=== PATIENT | female | born 1970 | race Caucasian/White ===

== ENCOUNTER 2018-07-29 20:10 | Emergency (ER) | payer BC ==
[2018-07-29 20:39] VITALS: TEMP 98.2
[2018-07-29 21:58] LABS: Amphetamine Screen,Urine Not Detected (NotDetected); Barbiturate Screen,Urine Not Detected (NotDetected); Benzodiazepines Screen,Urine Not Detected (NotDetected); Cocaine Screen,Urine Not Detected (NotDetected); Methadone Screen, Urine Not Detected (NotDetected); Opiate Screen,Urine Not Detected (NotDetected); Oxycodone Screen, Urine Not Detected (NotDetected); Phencyclidine Screen,Urine Not Detected (NotDetected); Tricyclic Antidepressant,Urine Not Detected (NotDetected); Urn Cannabinoid Scrn Not Detected (NotDetected)
--- NOTE | 2018-07-29 23:51 | ED ---
General Adult HPI <Rafael Hernandez - Last Filed: 07/30/18 05:54> - General Source: patient, family, police, RN notes reviewed Mode of arrival: ambulatory Limitations: no limitations <Norris Chairez - Last Filed: 07/30/18 20:03> - General Chief complaint: Psychiatric Symptoms Stated complaint: Mental Health Time Seen by Provider: 07/29/18 21:10 - History of Present Illness Initial comments: 48-year-old female with a past medical history of bipolar disorder and depression presents to the emergency department for a chief complaint of suicidal thoughts. Patient was brought in by PD. Patient supposedly lost her job today and has been expressing suicidal thoughts to her ex-. Patient is a [employer] and owns two guns. Ex- contacted police who brought her in for psychiatric evaluation. Patient denying suicidal thoughts at this time. States she is going to cooperate but then hopes to go home. Patient states she is taking her psychiatric medications but can only remember Lamictal. Patient has no other complaints at this time including shortness of breath, chest pain, abdominal pain, nausea or vomiting, headache, or visual changes. (Norris Chairez) - Related Data Allergies Allergy/AdvReac Type Severity Reaction Status Date / Time acetaminophen [From Percocet] Allergy Anaphylaxis Verified 07/29/18 21:21 codeine Allergy Anaphylaxis Verified 07/29/18 21:21 morphine Allergy Anaphylaxis Verified 07/29/18 21:21 oxycodone [From Percocet] Allergy Anaphylaxis Verified 07/29/18 21:21 Review of Systems ROS Other: All systems not noted in ROS Statement are negative. <Rafael Hernandez - Last Filed: 07/30/18 05:54> ROS Other: All systems not noted in ROS Statement are negative. <Norris Chairez - Last Filed: 07/30/18 20:03> ROS Statement: Those systems with pertinent positive or pertinent negative responses have been documented in the HPI. Past Medical History Past Medical History: No Reported History History of Any Multi-Drug Resistant Organisms: None Reported Past Surgical History: Cholecystectomy, Orthopedic Surgery Past Psychological History: No Psychological Hx Reported Smoking Status: Former smoker Past Alcohol Use History: Daily Past Drug Use History: None Reported <Norris Chairez - Last Filed: 07/30/18 20:03> General Exam Limitations: no limitations General appearance: alert Head exam: Present: atraumatic, normocephalic, normal inspection Eye exam: Present: normal appearance, PERRL, EOMI. Absent: scleral icterus, conjunctival injection, periorbital swelling ENT exam: Present: normal exam, mucous membranes moist Neck exam: Present: normal inspection, full ROM. Absent: tenderness, meningismus, lymphadenopathy Respiratory exam: Present: normal lung sounds bilaterally. Absent: respiratory distress, wheezes, rales, rhonchi, stridor Cardiovascular Exam: Present: regular rate, normal rhythm, normal heart sounds. Absent: systolic murmur, diastolic murmur, rubs, gallop, clicks Neurological exam: Present: alert, oriented X3, CN II-XII intact Psychiatric exam: Present: agitated <Norris Chairez - Last Filed: 07/30/18 20:03> Course <Norris Chairez - Last Filed: 07/30/18 20:03> Vital Signs 07/29/18 07/30/18 20:34 06:20 Temperature 98.2 F Pulse Rate 88 84 Respiratory 20 18 Rate Blood Pressure 159/61 125/85 O2 Sat by Pulse 98 98 Oximetry - Reevaluation(s) Reevaluation #1: 07/29/18 23:50 Patient was initially agitated, verbal de-escalation was used and successful. Patient currently resting comfortably. Patient sober at 0120. Will be evaluated by EPS at that time. (Norris Chairez) Medical Decision Making <Norris Chairez - Last Filed: 07/30/18 20:03> - Medical Decision Making Care signed out to Dr. Hernandez at midnight (Norris Chairez) - Lab Data Lab Results 07/29/18 Range/Units 21:39 Urine Opiates Screen Not Detected (NotDetected) Ur Oxycodone Screen Not Detected (NotDetected) Urine Methadone Screen Not Detected (NotDetected) Ur Propoxyphene Screen Not Detected (NotDetected) Ur Barbiturates Screen Not Detected (NotDetected) U Tricyclic Antidepress Not Detected (NotDetected) Ur Phencyclidine Scrn Not Detected (NotDetected) Ur Amphetamines Screen Not Detected (NotDetected) U Methamphetamines Scrn Not Detected (NotDetected) U Benzodiazepines Scrn Not Detected (NotDetected) Urine Cocaine Screen Not Detected (NotDetected) U Marijuana (THC) Screen Not Detected (NotDetected) Disposition Is patient prescribed a controlled substance at d/c from ED?: No <Rafael Hernandez - Last Filed: 07/30/18 05:54> Is patient prescribed a controlled substance at d/c from ED?: No <Norris Chairez - Last Filed: 07/30/18 20:03> Clinical Impression: Mood disorder Disposition: HOME SELF-CARE Condition: Good Instructions (If sedation given, give patient instructions): Mood Disorders (ED) Referrals: Nick Wilkins MD [Primary Care Provider] - 1-2 days
[2018-07-30 06:50] VITALS: BP 125/85; PULSE 84; RESP 18
== END 2018-07-30 06:20 | disposition home or self-care (01) ==
LOC: EC 20:10
DX: F39 Unspecified mood [affective] disorder (principal); Z87.891 Personal history of nicotine dependence; Z90.49 Acquired absence of other specified parts of digestive tract; Z88.5 Allergy status to narcotic agent; Z88.8 Allergy status to other drugs, medicaments and biological substances
CPT/HCPCS: 80306; 82075; 99285

== ENCOUNTER → 2021-02-15 | Outpatient (CLI) | payer BC ==
--- NOTE | 2021-02-16 13:43 | MM ---
Reason for exam: screening (asymptomatic). Last mammogram was performed 2 years and 6 months ago. History: Patient is nulliparous. Physical Findings: A clinical breast exam by your physician is recommended on an annual basis and results should be correlated with mammographic findings. MG 3D Screening Mammo W/Cad Bilateral CC and MLO view(s) were taken. Prior study comparison: August 24, 2018, mammogram, performed at [facility]. August 22, 2017, mammogram, performed at [facility]. There are scattered fibroglandular densities. There is no discrete abnormality. No significant changes when compared with prior studies. ASSESSMENT: Negative, BI-RAD 1 RECOMMENDATION: Routine screening mammogram of both breasts in 1 year.
== END | disposition home or self-care (01) ==
LOC: RADMAMWWP 10:04
PROVIDERS: ATTEND Family Medicine
DX: Z12.31 Encounter for screening mammogram for malignant neoplasm of breast (principal)
CPT/HCPCS: 77063; 77067

== ENCOUNTER → 2022-01-16 | Outpatient (CLI) | payer BC ==
--- NOTE | 2022-01-16 09:09 | CT ---
EXAMINATION TYPE: CT abdomen pelvis w con DATE OF EXAM: 01/16/2022 COMPARISON: none HISTORY: R10.30 lower abdominal pain CONTRAST: CT scan of the abdomen and pelvis is performed with Oral Contrast and with IV Contrast, patient injec roxi with 70 mL of Isovue 300. FINDINGS: LUNG BASES-: No visible nodule. No infiltrate. LIVER/GB: The gallbladder surgically absent. No space occupying hepatic lesion. Biliary tree is of normal caliber. PANCREAS: No inflammation. No distinct mass. SPLEEN: No splenic enlargement. No lesion seen. ADRENALS: No nodule. No thickening. KIDNEYS/BLADDER: No hydronephrosis. No nephrolithiasis. No distinct renal mass. Urinary bladder g rossly unremarkable. BOWEL: Normal appendix. Normal bowel caliber. No inflammation. GENITAL ORGANS: No gross abnormality. LYMPH NODES: No greater than 1cm abdominal or pelvic lymph nodes are appreciated. AORTA: No significant abnormality. OSSEOUS STRUCTURES: No significant abnormality is seen. OTHER: No significant additional abnormality is seen. IMPRESSION: 1. No discrete abnormality appreciated to account for the patient's symptoms.
== END | disposition home or self-care (01) ==
LOC: RADCTMAIN 06:22
PROVIDERS: ATTEND Surgery
DX: R10.30 Lower abdominal pain, unspecified (principal)
CPT/HCPCS: 74177; Q9967

== ENCOUNTER → 2022-02-18 | Outpatient (CLI) | payer BC ==
--- NOTE | 2022-02-19 15:17 | MM ---
Reason for Exam: Screening (asymptomatic). Last screening mammogram was performed 12 month(s) ago. Patient History: Menarche at age 12. First Full-Term at age 17. Postmenopausal. Risk Values: Scarlet 5 year model risk: 0.8%. NCI Lifetime model risk: 6.3%. Prior Study Comparison: 08/22/2017 Screening Mammogram, [facility]. 08/24/2018 Screening Mammogram, [facility]. 02/15/2021 Bilateral Screening Mammogram, LOCATED WITHIN [facility]. Tissue Density: There are scattered fibroglandular densities. Findings: Analyzed By CAD. Single benign appearing round calcification right breast redemonstrated. There is no suspicious group of microcalcifications or new suspicious mass in either breast. Overall Assessment: Negative, BI-RAD 1 Management: Screening Mammogram of both breasts in 1 year. A clinical breast exam by your physician is recommended on an annual basis and results should be correlated with mammographic findings. Electronically signed and approved by: Bhanu King M.D.
== END | disposition home or self-care (01) ==
LOC: RADMAMWWP 14:28
PROVIDERS: ATTEND Family Medicine
DX: Z12.31 Encounter for screening mammogram for malignant neoplasm of breast (principal); Z78.0 Asymptomatic menopausal state
CPT/HCPCS: 77063; 77067

== ENCOUNTER 2022-08-06 12:47 | Emergency (ER) | payer BC ==
[2022-08-06 13:08] VITALS: TEMP 97.9
--- NOTE | 2022-08-06 13:29 | ED ---
Chest Pain HPI - General Source: patient, RN notes reviewed Mode of arrival: ambulatory Limitations: no limitations <Arik Hills - Last Filed: 08/06/22 13:28> <Rafael Hernandez - Last Filed: 08/06/22 19:41> - General Chief Complaint: Chest Pain Stated Complaint: chest pain Time Seen by Provider: 08/06/22 13:28 - History of Present Illness Initial Comments: 52-year-old female presents emergency Department chief complaint of chest pain. Patient states started at work proximal to 4 hours ago. Patient states init ially she is very nauseated states the pain was intense. She does have cardiac family history denies any history of hypertension, hyperlipidemia or diabetes. Patient states her blood pressure was elevated at work. (Arik Hills) - Related Data Allergies Allergy/AdvReac Type Severity Reaction Status Date / Time acetaminophen [From Percocet] Allergy Anaphylaxis Verified 08/06/22 13:08 codeine Allergy Anaphylaxis Verified 08/06/22 13:08 morphine Allergy Anaphylaxis Verified 08/06/22 13:08 oxycodone [From Percocet] Allergy Anaphylaxis Verified 08/06/22 13:08 Review of Systems ROS Other: All systems not noted in ROS Statement are negative. <Arik Hills - Last Filed: 08/06/22 13:28> ROS Other: All systems not noted in ROS Statement are negative. <Rafael Hernandez - Last Filed: 08/06/22 19:41> ROS Statement: Those systems with pertinent positive or pertinent negative responses have been documented in the HPI. EKG Findings - EKG Results: EKG: interpreted by ERMD, sinus rhythm (Rate 100 bpm), normal axis, normal QRS, normal ST/T, no acute changes <Rafael Hernandez - Last Filed: 08/06/22 19:41> Past Medical History Past Medical History: No Reported History History of Any Multi-Drug Resistant Organisms: None Reported Past Surgical History: Cholecystectomy, Orthopedic Surgery Past Psychological History: No Psychological Hx Reported Past Alcohol Use History: Daily Past Drug Use History: None Reported <Arik Hills - Last Filed: 08/06/22 13:28> General Exam Limitations: no limitations <Arik Hills - Last Filed: 08/06/22 13:28> - General Exam Comments Initial Comments: Visual Physical Exam Vital signs reviewed General: Well-appearing, nontoxic, no acute distress. Head: Normocephalic, atraumatic Eyes: PERRLA, EOMI ENT: Airway patent Chest: Nonlabored breathing Skin: No visual rash, normal skin tone Neuro: Alert and oriented 3 Musculoskeletal: No gross abnormalities (Arik Hills) Course Vital Signs 08/06/22 08/06/22 08/06/22 13:05 13:48 19:22 Temperature 97.9 F Pulse Rate 97 92 83 Respiratory 18 16 Rate Blood Pressure 142/83 149/85 139/89 O2 Sat by Pulse 99 99 97 Oximetry Disposition <Arik Hills - Last Filed: 08/06/22 13:28> Is patient prescribed a controlled substance at d/c from ED?: No <Rafael Hernandez - Last Filed: 08/06/22 19:41> Clinical Impression: Chest pain Disposition: HOME SELF-CARE Condition: Good Instructions (If sedation given, give patient instructions): Chest Pain (ED) Referrals: Vargas Hunter MD [Primary Care Provider] - 1-2 days Festus Solis MD [STAFF PHYSICIAN] - 1-2 days
[2022-08-06 14:01] LABS: HCT 44.3 % (34.0-46.0); HGB 15.5 gm/dL (11.4-16.0); MCH 32.1 pg (25.0-35.0); MCV 91.8 fL (80.0-100.0); Mean Platelet Volume 6.7; Platelet Count 288 k/uL (150-450); RBC 4.82 m/uL (3.80-5.40); RDW 12.1 % (11.5-15.5); WBC 7.2 k/uL (3.8-10.6)
[2022-08-06 14:14] LABS: INR 0.9 (<1.2); Partial Thromboplastin Time 22.4 sec (22.0-30.0); Prothrombin Time 9.8 sec (9.0-12.0)
[2022-08-06 14:18] LABS: ALT 34 U/L (4-34); AST 61 U/L (14-36); African American GFR (CKD) >90 (>60 ml/min/1.73 sqM); Albumin 4.8 g/dL (3.5-5.0); Alkaline Phosphatase 72 U/L (38-126); Anion Gap 11 mmol/L; Blood Urea Nitrogen 7 mg/dL (7-17); Calcium 9.1 mg/dL (8.4-10.2); Carbon Dioxide 26 mmol/L (22-30); Chloride 97 mmol/L (98-107); Glucose 94 mg/dL (74-99); Lipase 105 U/L (23-300); Magnesium 1.8 mg/dL (1.6-2.3); Non-African American GFR(CKD) >90 (>60 ml/min/1.73 sqM); Sodium 134 mmol/L (137-145); Total Bilirubin 1.3 mg/dL (0.2-1.3); Total Protein 7.4 g/dL (6.3-8.2)
[2022-08-06 15:53] LABS: Lymphocytes # (M) 0.94 k/uL (1.0-4.8); Monocytes # (M) 0.36 k/uL (0-1.0); Neutrophils % (M) 82 %; Nucleated Red Blood Cells 0 /100 WBC (0-0); Total Cells Counted 100
[2022-08-06 19:23] VITALS: RESP 16
--- NOTE | 2022-08-06 19:52 | XR ---
EXAMINATION TYPE: XR chest 2V DATE OF EXAM: 08/06/2022 COMPARISON: None INDICATION: Chest pain TECHNIQUE: Frontal and lateral views of the chest are obtained. FINDINGS: The heart size is normal. The pulmonary vasculature is normal. The lungs are clear. IMPRESSION: 1. No acute pulmonary process.
[2022-08-06 20:20] VITALS: BP 136/76; PULSE 75
== END 2022-08-06 20:09 | disposition home or self-care (01) ==
LOC: EC 12:47
DX: R07.9 Chest pain, unspecified (principal); Z88.6 Allergy status to analgesic agent; Z88.5 Allergy status to narcotic agent
CPT/HCPCS: 36415; 71046; 80053; 83690; 83735; 84484; 85025; 85610; 85730; 93005; 99285

== ENCOUNTER → 2022-09-12 | Outpatient (CLI) | payer OTHER ==
--- NOTE | 2022-09-12 11:04 | XR ---
EXAMINATION TYPE: XR knee complete LT DATE OF EXAM: 09/12/2022 COMPARISON: NONE HISTORY: [id number] history of fall, lateral side knee pain TECHNIQUE: 3 views of the left knee are submitted for evaluation. FINDINGS: There is no evidence for fracture or dislocation. Ankle mortise is intact. No significant s oft tissue edema. A few soft tissue calcifications within the medial right knee. IMPRESSION: No evidence for acute fracture.
== END | disposition home or self-care (01) ==
LOC: RADXRMAIN 10:39
PROVIDERS: ATTEND Emergency Medicine
DX: S80.02XA Contusion of left knee, initial encounter (principal)

== ENCOUNTER → 2022-09-20 | Outpatient (CLI) | payer OTHER ==
--- NOTE | 2022-09-21 08:38 | MR ---
EXAMINATION TYPE: MR knee LT wo con DATE OF EXAM: 09/20/2022 COMPARISON: None HISTORY: Contusion of Left Knee, Pain and swelling TECHNIQUE: Multiplanar, multisequence imaging of the left knee is performed without IV contrast. FINDINGS: There is a nondisplaced fracture of the patella with moderate bone marrow edema. There is a small foc al contusion of the anterior aspect of the lateral femoral condyle. There is edema in the anterior so ft tissues overlying the patella. There is a small joint effusion. The cruciate and collateral ligaments are intact. Small ganglion cyst anterior cruciate ligament dist ally. There is no meniscal tear. There is mild osteoarthritic change of the patellofemoral compartment where there is mild chondromala debbie patella. There is mild osteoarthritic change of the medial lateral compartment where there is mil d chondromalacia mild marginal hypertrophic spurring. . IMPRESSION: 1. Evidence for acute injury with anterior soft tissue swelling, nondisplaced fracture patella with e yesenia and focal edema in the anterior lateral femoral condyle. 2. Small joint effusion. 3. Mild 3 compartment osteoarthritic change. 4. No acute meniscal or ligamentous injury.
== END | disposition home or self-care (01) ==
LOC: RADMRIMAIN 17:28
PROVIDERS: ATTEND Emergency Medicine
DX: M17.12 Unilateral primary osteoarthritis, left knee (principal); S80.02XA Contusion of left knee, initial encounter; S82.035A Nondisplaced transverse fracture of left patella, initial encounter for closed fracture; S72.425A Nondisplaced fracture of lateral condyle of left femur, initial encounter for closed fracture; M25.462 Effusion, left knee; M79.89 Other specified soft tissue disorders; X58.XXXA Exposure to other specified factors, initial encounter

== ENCOUNTER → 2022-09-26 | Outpatient (CLI) | payer OTHER ==
--- NOTE | 2022-09-26 17:48 | US ---
EXAMINATION TYPE: US venous doppler duplex LE LT DATE OF EXAM: 09/26/2022 2:44 PM COMPARISON: NONE CLINICAL INDICATION: Female, 52 years old with history of S80.02XD,S82.002D FX PATELLA; recent fractu re, swelling to left leg SIDE PERFORMED: Left TECHNIQUE: The lower extremity deep venous system is examined utilizing real time linear array sonog jose with graded compression, doppler sonography and color-flow sonography. VESSELS IMAGED: Common Femoral Vein Deep Femoral Vein Greater Saphenous Vein * Femoral Vein Popliteal Vein Small Saphenous Vein * Proximal Calf Veins (* superficial vessels) Grayscale, color doppler, spectral doppler imaging performed of the deep veins of the left lower extr emity. There is normal flow, compressibility, vascular waveforms. Left Leg: Negative for DVT IMPRESSION: No ultrasound evidence for deep venous thrombosis of the left lower extremity.
== END | disposition home or self-care (01) ==
LOC: RADUSWWP 13:54
PROVIDERS: ATTEND Emergency Medicine
DX: S80.02XD Contusion of left knee, subsequent encounter (principal); S82.002D Unspecified fracture of left patella, subsequent encounter for closed fracture with routine healing; X58.XXXD Exposure to other specified factors, subsequent encounter

== ENCOUNTER 2023-01-22 10:45 | Emergency (ER) | payer BC ==
[2023-01-22 11:02] VITALS: TEMP 98.2
[2023-01-22] MEDS ORDERED: MECLIZINE 12.5 MG TAB PO STA ×2 (11:20→11:43)
[2023-01-22] MEDS ORDERED: SODIUM CHLORIDE 0.9% 1,000 ML IV STA (11:20)
[2023-01-22] MEDS ORDERED: KETOROLAC 15 MG/ML 1 ML VIAL IVP STA (11:28)
--- NOTE | 2023-01-22 11:33 | ED ---
Headache HPI - General Chief Complaint: Headache Stated Complaint: HTN Time Seen by Provider: 01/22/23 10:53 Source: patient, RN notes reviewed Mode of arrival: ambulatory Limitations: no limitations - History of Present Illness Initial Comments: This is a 52-year-old female who presents to the emergency department for a headache and dizziness. Patient states that she woke up this morning with a room spinning sensation and thought that she may have vertigo. She went to see her chiropractor who was going to adjust her neck, and he told her that she had elevated blood pressure and wondered if that may have been causing her symptoms. She was also complaining of a headache to the back of her head. States that her blood pressure is usually in the 140s systolically and she was going to wait until her physical examination early next month to discuss this with her PCP. Denies any visual changes. She was not experiencing a headache prior to today. She would not describe this as the worst headache of her life. She does still feel somewhat dizzy, but states that it is much worse with movement. Denies any nausea or vomiting. Denies feeling lightheaded. Also denies any chest pain or shortness of breath. MD Complaint: headache, other (dizziness) - Related Data Previous Rx's Medication Instructions Recorded Meclizine [Antivert] 25 mg PO TID PRN #15 tab 01/22/23 Metoclopramide [Reglan] 10 mg PO Q6H PRN #20 tab 01/22/23 Molnupiravir [Lagevrio (Eua)] 800 mg PO BID 5 Days #40 cap 01/22/23 Allergies Allergy/AdvReac Type Severity Reaction Status Date / Time codeine Allergy Anaphylaxis Verified 01/22/23 11:41 morphine Allergy Anaphylaxis Verified 01/22/23 11:41 oxycodone [From Percocet] Allergy Anaphylaxis Verified 01/22/23 11:41 Review of Systems ROS Statement: Those systems with pertinent positive or pertinent negative responses have been documented in the HPI. ROS Other: All systems not noted in ROS Statement are negative. Past Medical History Past Medical History: No Reported History History of Any Multi-Drug Resistant Organisms: None Reported Past Surgical History: Cholecystectomy, Orthopedic Surgery Past Psychological History: No Psychological Hx Reported Smoking Status: Never smoker Past Alcohol Use History: Daily Past Drug Use History: None Reported General Exam Limitations: no limitations General appearance: alert, in no apparent distress Head exam: Present: atraumatic, normocephalic, normal inspection Eye exam: Present: normal appearance, PERRL, EOMI. Absent: scleral icterus, conjunctival injection, periorbital swelling Respiratory exam: Present: normal lung sounds bilaterally. Absent: respiratory distress, wheezes, rales, rhonchi, stridor Cardiovascular Exam: Present: regular rate, normal rhythm, normal heart sounds. Absent: systolic murmur, diastolic murmur, rubs, gallop, clicks Neurological exam: Present: alert, oriented X3, CN II-XII intact, other (Negative HINTS exam.) Psychiatric exam: Present: normal affect, normal mood Skin exam: Present: warm, dry, intact, normal color. Absent: rash Course Vital Signs 01/22/23 01/22/23 01/22/23 10:46 11:31 13:21 Temperature 98.2 F Pulse Rate 103 H 96 80 Respiratory 18 20 18 Rate Blood Pressure 175/104 140/92 144/89 O2 Sat by Pulse 99 96 99 Oximetry Medical Decision Making - Medical Decision Making This is a 52-year-old female who presents to the emergency department for headaches and dizziness. Was pt. sent in by a medical professional or institution? @ -No Did you speak to anyone other than the patient for history? @ -No Did you review nursing and triage notes? @ -Yes, and I agree, it is accurate with regards to the patient's symptoms. Were old charts reviewed? @ -No Differential Diagnosis? @ -Differential Dizziness: Benign paroxysmal positional Vertigo, Menieres disease, otitis media, acoustic neuroma, vertebrobasilar insufficiency, cerebellar stroke, encephalitis, hypovolemic, arrhythmia, coronary artery syndrome, anemia, this is not meant to be an all-inclusive list EKG interpreted by me (3pts min.)? @ -EKG interpreted by me demonstrating the following: Sinus rhythm. Ventricular rate 85 beats per minute, DC interval 162 ms, QRS duration 88 ms, QTC 388 ms. X-rays interpreted by me (1pt min.)? @ -Not obtained CT interpreted by me (1pt min.)? @ -Not obtained U/S interpreted by me (1pt. min.)? @ -Not obtained What testing was considered but not performed? (CT, X-rays, U/S, labs)? Why? @ -None What meds were considered but not given? Why? @ -None Did you discuss the management of the patient with other professionals? @ -No Did you reconcile home meds? @ -No Was smoking cessation discussed for >3mins.? @ -No Was critical care preformed (if so, how long)? @ -No Were there social determinants of health that impacted care today? How? (Homelessness, low income, unemployed, alcoholism, drug addiction, transportation, low edu. Level, literacy, decrease access to med. care, halfway, rehab)? @ -No Was there de-escalation of care discussed even if they declined? (Discuss DNR or withdrawal of care, Hospice)? @ -No What co-morbidities impacted this encounter? (DM, HTN, Smoking, COPD, CAD, Cancer, CVA, Hep., AIDS, mental health diagnosis, sleep apnea, morbid obesity)? @ -HTN Was patient admitted / discharged? @ -Discharged. Lab work obtained and found to be nonactionable. Patient did test positive for COVID-19. She was hypertensive on arrival with a blood pressure of 175/104. However, this improved on its own and at the time of discharge she was 138/72. She was given IV fluids and Antivert, which she felt was helpful for her symptoms. Discussed that viral illnesses such as Covid can trigger vertigo attacks. HINTS exam was negative and she did not exhibit any neurological deficits. Discussed antiviral treatment with the patient, and she wishes to proceed. Prescription for Molnupirivir provided with dosing instructions reviewed. She was also given prescriptions for antivert and reglan for further management of the vertigo. She was discharged home in stable condition with instructions to have close follow up with her PCP and continue monitoring her BP at home. Undiagnosed new problem with uncertain prognosis? @ -None Drug Therapy requiring intensive monitoring for toxicity (Heparin, Nitro, Insulin, Cardizem)? @ -None Were any procedures done? @ -None Diagnosis/symptom? @ -BPPV, COVID-19 Acute, or Chronic, or Acute on Chronic? @ -Acute Uncomplicated (without systemic symptoms) or Complicated (systemic symptoms)? @ -Uncomplicated Side effects of treatment? @ -None Exacerbation, Progression, or Severe Exacerbation] @ -Not applicable Poses a threat to life or bodily function? @ -No Return precautions reviewed in depth, the patient is instructed to return to the emergency department with any new, worsening, or concerning symptoms. Patient verbalized understanding. This case was discussed in detail with the attending ED physician, Dr. Levy. Presentation, findings, and treatment plan discussed in detail as well. - Lab Data Result diagrams: 01/22/23 11:24 01/22/23 11:24 Lab Results 01/22/23 01/22/23 01/22/23 Range/Units 11:24 11:24 11:24 WBC 6.5 (3.8-10.6) k/uL RBC 4.58 (3.80-5.40) m/uL Hgb 14.9 (11.4-16.0) gm/dL Hct 42.1 (34.0-46.0) % MCV 91.9 (80.0-100.0) fL MCH 32.5 (25.0-35.0) pg MCHC 35.4 (31.0-37.0) g/dL RDW 12.2 (11.5-15.5) % Plt Count 264 (150-450) k/uL MPV 7.3 Neutrophils % (Manual) 73 % Lymphocytes % (Manual) 15 % Monocytes % (Manual) 7 % Eosinophils % (Manual) 5 % Neutrophils # (Manual) 4.75 (1.3-7.7) k/uL Lymphocytes # (Manual) 0.98 L (1.0-4.8) k/uL Monocytes # (Manual) 0.46 (0-1.0) k/uL Eosinophils # (Manual) 0.33 (0-0.7) k/uL Nucleated RBCs 0 (0-0) /100 WBC Manual Slide Review Performed RBC Morphology Normal Sodium 139 (137-145) mmol/L Potassium 4.2 (3.5-5.1) mmol/L Chloride 106 (98-107) mmol/L Carbon Dioxide 23 (22-30) mmol/L Anion Gap 10 mmol/L BUN 7 (7-17) mg/dL Creatinine 0.51 L (0.52-1.04) mg/dL Est GFR (CKD-EPI)AfAm >90 (>60 ml/min/1.73 sqM) Est GFR (CKD-EPI)NonAf >90 (>60 ml/min/1.73 sqM) Glucose 85 (74-99) mg/dL Calcium 9.5 (8.4-10.2) mg/dL Total Bilirubin 1.3 (0.2-1.3) mg/dL AST 49 H (14-36) U/L ALT 28 (4-34) U/L Alkaline Phosphatase 66 (38-126) U/L Total Protein 7.0 (6.3-8.2) g/dL Albumin 4.3 (3.5-5.0) g/dL Urine Color Colorless Urine Appearance Clear (Clear) Urine pH 5.5 (5.0-8.0) Ur Specific [place] 1.002 (1.001-1.035) Urine Protein Negative (Negative) Urine Glucose (UA) Negative (Negative) Urine Ketones Negative (Negative) Urine Blood Negative (Negative) Urine Nitrite Negative (Negative) Urine Bilirubin Negative (Negative) Urine Urobilinogen <2.0 (<2.0) mg/dL Ur Leukocyte Esterase Negative (Negative) Influenza Type A (PCR) (Not Detectd) Influenza Type B (PCR) (Not Detectd) RSV (PCR) (Not Detectd) SARS-CoV-2 (PCR) (Not Detectd) 01/22/23 Range/Units 11:24 WBC (3.8-10.6) k/uL RBC (3.80-5.40) m/uL Hgb (11.4-16.0) gm/dL Hct (34.0-46.0) % MCV (80.0-100.0) fL MCH (25.0-35.0) pg MCHC (31.0-37.0) g/dL RDW (11.5-15.5) % Plt Count (150-450) k/uL MPV Neutrophils % (Manual) % Lymphocytes % (Manual) % Monocytes % (Manual) % Eosinophils % (Manual) % Neutrophils # (Manual) (1.3-7.7) k/uL Lymphocytes # (Manual) (1.0-4.8) k/uL Monocytes # (Manual) (0-1.0) k/uL Eosinophils # (Manual) (0-0.7) k/uL Nucleated RBCs (0-0) /100 WBC Manual Slide Review RBC Morphology Sodium (137-145) mmol/L Potassium (3.5-5.1) mmol/L Chloride (98-107) mmol/L Carbon Dioxide (22-30) mmol/L Anion Gap mmol/L BUN (7-17) mg/dL Creatinine (0.52-1.04) mg/dL Est GFR (CKD-EPI)AfAm (>60 ml/min/1.73 sqM) Est GFR (CKD-EPI)NonAf (>60 ml/min/1.73 sqM) Glucose (74-99) mg/dL Calcium (8.4-10.2) mg/dL Total Bilirubin (0.2-1.3) mg/dL AST (14-36) U/L ALT (4-34) U/L Alkaline Phosphatase (38-126) U/L Total Protein (6.3-8.2) g/dL Albumin (3.5-5.0) g/dL Urine Color Urine Appearance (Clear) Urine pH (5.0-8.0) Ur Specific Climax (1.001-1.035) Urine Protein (Negative) Urine Glucose (UA) (Negative) Urine Ketones (Negative) Urine Blood (Negative) Urine Nitrite (Negative) Urine Bilirubin (Negative) Urine Urobilinogen (<2.0) mg/dL Ur Leukocyte Esterase (Negative) Influenza Type A (PCR) Not Detected (Not Detectd) Influenza Type B (PCR) Not Detected (Not Detectd) RSV (PCR) Not Detected (Not Detectd) SARS-CoV-2 (PCR) Detected A (Not Detectd) Disposition Clinical Impression: Vertigo, COVID-19 Disposition: HOME SELF-CARE Instructions (If sedation given, give patient instructions): Vertigo (ED), Benign Paroxysmal Positional Vertigo (ED), COVID-19 (Coronavirus Disease 2019) (ED) Additional Instructions: Return to the emergency department with any new, worsening, or concerning symptoms. Take the Molnupiravir as 4 tablets twice daily for 5 days. You can take the Antivert up to 4 times daily for feelings of dizziness/vertigo. The Reglan can be taken up to every 6 hours as needed for vertigo/dizziness or nausea/vomiting. Follow up with your primary care provider in 1-2 days. Prescriptions: Meclizine [Antivert] 25 mg PO TID PRN #15 tab PRN Reason: Vertigo Molnupiravir [Lagevrio (Eua)] 800 mg PO BID 5 Days #40 cap Metoclopramide [Reglan] 10 mg PO Q6H PRN #20 tab PRN Reason: Vertigo Is patient prescribed a controlled substance at d/c from ED?: No Referrals: Vargas Hunter MD [Primary Care Provider] - 1-2 days
[2023-01-22 11:53] LABS: Appearance,Urine Clear (Clear); Bilirubin,Urine Negative (Negative); Blood,Urine Negative (Negative); Color,Urine Colorless; Glucose,Urine (UA) Negative (Negative); HCT 42.1 % (34.0-46.0); HGB 14.9 gm/dL (11.4-16.0); Ketones,Urine Negative (Negative); Leukocyte Esterase,Urine Negative (Negative); MCH 32.5 pg (25.0-35.0); MCHC 35.4 g/dL (31.0-37.0); MCV 91.9 fL (80.0-100.0); Mean Platelet Volume 7.3; Nitrite,Urine Negative (Negative); PH, Urine 5.5 (5.0-8.0); Platelet Count 264 k/uL (150-450); Protein,Urine Negative (Negative); RBC 4.58 m/uL (3.80-5.40); RDW 12.2 % (11.5-15.5); Specific Gravity,Urine 1.002 (1.001-1.035); Urobilinogen,Urine <2.0 mg/dL (<2.0); WBC 6.5 k/uL (3.8-10.6)
[2023-01-22 12:04] LABS: ALT 28 U/L (4-34); AST 49 U/L (14-36); African American GFR (CKD) >90 (>60 ml/min/1.73 sqM); Albumin 4.3 g/dL (3.5-5.0); Alkaline Phosphatase 66 U/L (38-126); Anion Gap 10 mmol/L; Blood Urea Nitrogen 7 mg/dL (7-17); Calcium 9.5 mg/dL (8.4-10.2); Carbon Dioxide 23 mmol/L (22-30); Chloride 106 mmol/L (98-107); Glucose 85 mg/dL (74-99); Non-African American GFR(CKD) >90 (>60 ml/min/1.73 sqM); Potassium 4.2 mmol/L (3.5-5.1); Sodium 139 mmol/L (137-145); Total Bilirubin 1.3 mg/dL (0.2-1.3)
[2023-01-22 12:45] LABS: Eosinophils # (M) 0.33 k/uL (0-0.7); Lymphocytes # (M) 0.98 k/uL (1.0-4.8); Monocytes # (M) 0.46 k/uL (0-1.0); Neutrophils # (M) 4.75 k/uL (1.3-7.7); Neutrophils % (M) 73 %; Nucleated Red Blood Cells 0 /100 WBC (0-0); Total Cells Counted 100
[2023-01-22 12:47] LABS: RBC Morphology Normal
[2023-01-22] MEDS ORDERED: SCOPOLAMINE 1 MG/72 HR PATCH TRANSDERM STA (12:56)
[2023-01-22 13:22] VITALS: BP 144/89; PULSE 80; RESP 18
== END 2023-01-22 13:22 | disposition home or self-care (01) ==
LOC: EC 10:45
DX: U07.1 COVID-19 (principal); R42 Dizziness and giddiness; Z88.5 Allergy status to narcotic agent; Z88.8 Allergy status to other drugs, medicaments and biological substances
CPT/HCPCS: 99284; 96374; 96361; 36415; 80053; 85025; 81003; 87636; J1885; 93005

== ENCOUNTER → 2023-02-19 | Outpatient (CLI) | payer BC ==
--- NOTE | 2023-02-20 10:39 | MM ---
Reason for Exam: Screening (asymptomatic). Last screening mammogram was performed 12 month(s) ago. Patient History: Menarche at age 12. First Full-Term at age 17. Postmenopausal. Risk Values: Scarlet 5 year model risk: 0.8%. NCI Lifetime model risk: 6.2%. Prior Study Comparison: 08/24/2018 Screening Mammogram, [facility]. 02/15/2021 Bilateral Screening Mammogram, [facility]. 02/18/2022 Bilateral MG 3D screening mammo w/cad, [facility]. Tissue Density: There are scattered fibroglandular densities. Findings: Analyzed By CAD. Distortion upper outer left breast. Additional views recommended. No evidence for mass. No suspicious calcifications. Overall Assessment: Incomplete: need additional imaging evaluation, BI-RAD 0 Management: Diagnostic Mammogram of the left breast. Patient should continue monthly self-breast exams. A clinical breast exam by your physician is recommended on an annual basis. This exam should not preclude additional follow-up of suspicious palpable abnormalities. Note on Scarlet scores and lifetime risk: 1. A Scarlet score greater than 3% is considered moderate risk. If this is the case, consider specialist referral to assess eligibility for a risk reducing agent. 2. If overall lifetime risk for the development of breast cancer is 20% or higher, the patient may qualify for future screening with alternating mammogram and breast MRI. Electronically signed and approved by: Olivier Saul M.D. Radiologis
== END | disposition home or self-care (01) ==
LOC: RADMAMWWP 15:06
PROVIDERS: ATTEND Family Medicine
DX: Z12.31 Encounter for screening mammogram for malignant neoplasm of breast (principal); Z78.0 Asymptomatic menopausal state
CPT/HCPCS: 77063; 77067

== ENCOUNTER → 2023-03-07 | Outpatient (CLI) | payer BC ==
--- NOTE | 2023-03-07 14:26 | MM ---
Reason for Exam: Additional evaluation requested from abnormal screening. Last screening mammogram was performed less than 1 month ago. Patient History: Menarche at age 12. First Full-Term at age 17. Postmenopausal. Risk Values: Scarlet 5 year model risk: 0.8%. NCI Lifetime model risk: 6.2%. Prior Study Comparison: 02/15/2021 Bilateral Screening Mammogram, [facility]. 02/18/2022 Bilateral MG 3D screening mammo w/cad, [facility]. 02/19/2023 Bilateral MG 3D screening mammo w/cad, [facility]. Tissue Density: Left: The breast tissue is almost entirely fat. Findings: Analyzed By CAD. Potential distortion persists in the left breast 7.7 cm the nipple in the lateral aspect. No new suspicious masses, calcifications or distortions. Overall Assessment: Incomplete: need additional imaging evaluation, BI-RAD 0 Management: Diagnostic Breast Ultrasound of the left breast. Results were given to the patient verbally at the time of exam. Patient should continue monthly self-breast exams. A clinical breast exam by your physician is recommended on an annual basis. This exam should not preclude additional follow-up of suspicious palpable abnormalities. Note on Scarlet scores and lifetime risk: 1. A Scarlet score greater than 3% is considered moderate risk. If this is the case, consider specialist referral to assess eligibility for a risk reducing agent. 2. If overall lifetime risk for the development of breast cancer is 20% or higher, the patient may qualify for future screening with alternating mammogram and breast MRI. Electronically signed and approved by: Mo Chavez DO
--- NOTE | 2023-03-07 15:15 | USB ---
Reason for Exam: Additional evaluation requested from abnormal screening. Patient History: Menarche at age 12. First Full-Term at age 17. Postmenopausal. Risk Values: Scarlet 5 year model risk: 0.8%. NCI Lifetime model risk: 6.2%. Technique: Method: Targeted. Prior Study Comparison: 02/15/2021 Bilateral Screening Mammogram, [facility]. 02/18/2022 Bilateral MG 3D screening mammo w/cad, [facility]. 02/19/2023 Bilateral MG 3D screening mammo w/cad, [facility]. Findings: The upper outer quadrant of the left breast, the axilla of the left breast and the retroareolar of the left breast were scanned. Targeted ultrasound upper outer quadrant left breast including the subareolar region and axilla. No solid or cystic lesion or axillary lymphadenopathy. Overall Assessment: Probably benign, BI-RAD 3 Management: Diagnostic Mammogram of the left breast in 6 months. A clinical breast exam by your physician is recommended on an annual basis and results should be correlated with mammographic findings. This exam should not preclude additional follow-up of suspicious palpable abnormalities. Results were given to the patient verbally at the time of exam. Electronically signed and approved by: Brenna Humphries M.D. Radiologist
== END | disposition home or self-care (01) ==
LOC: RADMAMWWP 13:37
PROVIDERS: ATTEND Family Medicine
DX: R92.312 Mammographic fatty tissue density, left breast (principal); Z78.0 Asymptomatic menopausal state
CPT/HCPCS: 77061; 77065

== ENCOUNTER 2024-09-22 09:16 | Observation (INO) | payer BC, OTHER ==
--- NOTE | 2024-09-22 09:52 | ED ---
Chest Pain HPI - General Chief Complaint: Chest Pain Stated Complaint: Chest Pain Time Seen by Provider: 09/22/24 09:26 Source: patient, RN notes reviewed Mode of arrival: ambulatory Limitations: no limitations - History of Present Illness Initial Comments: 54-year-old female presents emergency department with chief complaint of chest discomfort. Patient states that started when she was getting ready for work. Patient states that centralized chest pain radiates to her back. Patient states marked pressure type feeling she states she does have a history of hypertension she worked with former smoker over 30 years ago. Patient states she has significant family history of cardiac disease. Patient denies fever chills no shortness of breath currently. Patient had no diaphoretic episodes denies any leg pain or leg swelling. - Related Data Previous Rx's Medication Instructions Recorded Meclizine [Antivert] 25 mg PO TID PRN #15 tab 01/22/23 Metoclopramide [Reglan] 10 mg PO Q6H PRN #20 tab 01/22/23 Molnupiravir [Lagevrio (Eua)] 800 mg PO BID 5 Days #40 cap 01/22/23 Allergies Allergy/AdvReac Type Severity Reaction Status Date / Time codeine Allergy Anaphylaxis Verified 09/22/24 09:23 morphine Allergy Anaphylaxis Verified 09/22/24 09:23 oxycodone [From Percocet] Allergy Anaphylaxis Verified 09/22/24 09:23 Review of Systems ROS Statement: Those systems with pertinent positive or pertinent negative responses have been documented in the HPI. ROS Other: All systems not noted in ROS Statement are negative. EKG Findings - EKG Comments: EKG Findings:: Sinus rhythm rate of 71 [place] 167 QRS 94 QT/QTc 405/428 - EKG Results: EKG: interpreted by ERMD Past Medical History Past Medical History: Hypertension History of Any Multi-Drug Resistant Organisms: None Reported Past Surgical History: Back Surgery, Cholecystectomy, Hernia Repair, Joint Replacement, Orthopedic Surgery Additional Past Surgical History / Comment(s): Gastric Bypass Past Psychological History: No Psychological Hx Reported Smoking Status: Never smoker Past Alcohol Use History: Daily Past Drug Use History: None Reported General Exam Limitations: no limitations General appearance: alert, in no apparent distress Head exam: Present: atraumatic, normocephalic, normal inspection Neck exam: Present: normal inspection, full ROM. Absent: tenderness, meningismus, lymphadenopathy Respiratory exam: Present: normal lung sounds bilaterally. Absent: respiratory distress, wheezes, rales, rhonchi, stridor Cardiovascular Exam: Present: regular rate, normal rhythm, normal heart sounds. Absent: systolic murmur, diastolic murmur, rubs, gallop, clicks GI/Abdominal exam: Present: soft, normal bowel sounds. Absent: distended, tenderness, guarding, rebound, rigid Back exam: Absent: CVA tenderness (R), CVA tenderness (L) Neurological exam: Present: alert, oriented X3 Course Vital Signs 09/22/24 09/22/24 09:21 11:30 Temperature 97.9 F Pulse Rate 74 75 Respiratory 20 18 Rate Blood Pressure 148/89 126/83 O2 Sat by Pulse 99 96 Oximetry Chest Pain MDM - MDM Was pt. sent in by a medical professional or institution (, PA, DELIVERY ENGINEER, urgent care, hospital, or [facility]...) When possible be specific @ -No Did you speak to anyone other than the patient for history (EMS, parent, family, police, friend...)? What history was obtained from this source @ -No Did you review nursing and triage notes (agree or disagree)? Why? @ -I reviewed and agree with nursing and triage notes Were old charts reviewed (outside hosp., previous admission, EMS record, old EKG, old radiological studies, urgent care reports/EKG's, [facility] records)? Report findings @ -No old charts were reviewed Differential Diagnosis (chest pain, altered mental status, abdominal pain women, abdominal pain men, vaginal bleeding, weakness, fever, dyspnea, syncope, headache, dizziness, GI bleed, back pain, seizure, CVA, palpatations, mental health, musculoskeletal)? @ -Differential Chest Pain: Stable Angina, Unstable Angina, STEMI, NSTEMI Aortic Dissection, Pneumothorax, Musculoskeletal, Esophageal Spasm GERD, Cholecystitis, Pancreatitis, Zoster, this is not meant to be an all-inclusive list. EKG interpreted by me (3pts min.). @ -As above X-rays interpreted by me (1pt min.). @ -Chest x-ray shows no acute cardiopulmonary process. CT interpreted by me (1pt min.). @ -CT of the chest shows no evidence of PE, possible small area of groundglass opacity U/S interpreted by me (1pt. min.). @ -None done What testing was considered but not performed or refused? (CT, X-rays, U/S, labs)? Why? @ -None What meds were considered but not given or refused? Why? @ -None Did you discuss the management of the patient with other professionals (professionals i.e. , PA, DELIVERY ENGINEER, lab, RT, psych nurse, social contact worker, project coach, teacher, licensing officer, case technician)? Give summary @ -Sound physician for admission Was smoking cessation discussed for >3mins.? @ -No Was critical care preformed (if so, how long)? @ -No Were there social determinants of health that impacted care today? How? (Homelessness, low income, unemployed, alcoholism, drug addiction, transportation, low edu. Level, literacy, decrease access to med. care, halfway, rehab)? @ -No Was there de-escalation of care discussed even if they declined (Discuss DNR or withdrawal of care, Hospice)? DNR status @ -No What co-morbidities impacted this encounter? (DM, HTN, Smoking, COPD, CAD, Cancer, CVA, ARF, Chemo, Hep., AIDS, mental health diagnosis, sleep apnea, morbid obesity)? @ -Family cardiac history, hypertension Was patient admitted / discharged? Hospital course, mention meds given and route, prescriptions, significant lab abnormalities, going to OR and other pertinent info. @ -Admitted patient presented for chest pain, concern ACS symptoms. Patient be admitted for cardiac rule out. Initial troponin is negative, CT and chest x-ray were unremarkable Undiagnosed new problem with uncertain prognosis? @ -No Drug Therapy requiring intensive monitoring for toxicity (Heparin, Nitro, Insulin, Cardizem)? @ -No Were any procedures done? @ -No Diagnosis/symptom? @ -Chest pain Acute, or Chronic, or Acute on Chronic? @Acute Uncomplicated (without systemic symptoms) or Complicated (systemic symptoms)? @ -Complicated Side effects of treatment? @ -No Exacerbation, Progression, or Severe Exacerbation? @ -No Poses a threat to life or bodily function? How? (Chest pain, [place], [place], pneumonia, PE, COPD, DKA, ARF, appy, cholecystitis, CVA, Diverticulitis, Homicidal, Suicidal, threat to staff... and all critical care pts) @ -yes chest pain risk to cardiac function Disposition Clinical Impression: Chest pain Disposition: ADMITTED IP TO THIS HOSP Condition: Fair Referrals: Vargas Hunter MD [Primary Care Provider] - 1-2 days Time of Disposition: 12:12
[2024-09-22] MEDS: ASPIRIN 81 MG PO STA (09:54)
[2024-09-22 09:55] LABS: Basophils # (A) 0.05 10*3/uL (0.00-0.10); Basophils % (A) 1.3 %; Eosinophils # (A) 0.10 10*3/uL (0.04-0.35); Eosinophils % (A) 2.6 %; HCT 39.3 % (37.2-46.3); HGB 13.9 g/dL (12.0-15.0); Lymphocytes # (A) 0.86 10*3/uL (0.90-5.00); Lymphocytes % (A) 22.5 %; MCH 32.4 pg (27.0-32.0); MCHC 35.4 g/dL (32.0-37.0); MCV 91.6 fL (80.0-97.0); Monocytes # (A) 0.44 10*3/uL (0.20-1.00); Monocytes % (A) 11.5 %; Neutrophils # (A) 2.38 10*3/uL (1.80-7.70); Neutrophils % (A) 62.1 %; Platelet Count 208 10*3/uL (140-440); RBC 4.29 10*6/uL (4.10-5.20); RDW 12.5 % (11.5-14.5); WBC 3.83 10*3/uL (4.50-10.00)
--- NOTE | 2024-09-22 09:55 | XR ---
EXAMINATION TYPE: XR chest 2V DATE OF EXAM: 09/22/2024 9:52 AM COMPARISON: 08/06/2022 CLINICAL INDICATION: Female, 54 years old with history of Chest Pain, , TECHNIQUE: PA and lateral views FINDINGS: The cardiomediastinal silhouette, aorta, and pulmonary vasculature are within normal limits. Some min imal strandy atelectasis in the lower lungs. Otherwise, lungs and pleural spaces are clear. IMPRESSION: No acute cardiopulmonary process. [facility], Workstation: [id number], 09/22/2024 9:53 AM
[2024-09-22] MEDS: NITROGLYCERIN SL TABS 0.4 MG TAB SUBLINGUAL STA (09:56)
[2024-09-22 10:16] LABS: INR 0.9 (<1.2); Partial Thromboplastin Time 22.5 sec (22.0-30.0); Prothrombin Time 10.0 sec (10.0-12.5)
[2024-09-22 10:31] LABS: ALT 39 U/L (4-34); AST 111 U/L (14-36); African American GFR (CKD) >90 (>60 ml/min/1.73 sqM); Albumin 4.3 g/dL (3.5-5.0); Alkaline Phosphatase 92 U/L (38-126); Anion Gap 10 mmol/L; Blood Urea Nitrogen 5 mg/dL (7-17); Calcium 9.2 mg/dL (8.4-10.2); Carbon Dioxide 24 mmol/L (22-30); Chloride 104 mmol/L (98-107); Glucose 90 mg/dL (74-99); Lipase 105 U/L (23-300); Magnesium 2.0 mg/dL (1.6-2.3); Non-African American GFR(CKD) >90 (>60 ml/min/1.73 sqM); Potassium 4.0 mmol/L (3.5-5.1); Sodium 138 mmol/L (137-145); Total Protein 6.9 g/dL (6.3-8.2)
--- NOTE | 2024-09-22 11:36 | CT ---
EXAMINATION TYPE: CT chest angio for PE DATE OF EXAM: 09/22/2024 11:08 AM COMPARISON: Radiograph same day CLINICAL INDICATION: Female, 54 years old with history of pain; chest pain and SOB TECHNIQUE/CONTRAST: CTA scan of the thorax is performed with IV Contrast, patient injected with 100ml mL of Isovue 370, M IP images are created and reviewed these are created on a separate workstation.. CT DLP: 406.2 mGycm, Automated exposure control for dose reduction was used. FINDINGS: The heart is normal size with trace anterior pericardial fluid. No flattening of the interventricular septum or reflux of contrast into the hepatic veins. Aorta normal caliber with a conventional arch vessel branching anatomy. No thoracic lymph adenopathy by CT size criteria. Satisfactory opacification of the pulmonary arterial system. No pulmonary embolus is seen. Mild strandy dependent atelectasis in the lower lungs. Some focal groundglass posterolateral right mi d lung. Background mild emphysematous change. Postsurgical change of Rayray-en-Y gastric bypass with a small hiatal hernia present. Some of the surgi dimas anastomosis is involved by the hiatal hernia. Otherwise, visualized upper abdomen shows cholecyst ectomy clips and an anterior splenule. There may be underlying fatty infiltration of the liver. Bones: Mild to moderate degenerative disc disease mid to lower thoracic spine. IMPRESSION: 1. No evidence of pulmonary embolism. 2. There is focal groundglass posterolateral right mid lung that could represent an infectious/inflam matory focus. Correlate with symptoms. 3. COPD with mild emphysema. 4. Status post Rayray-en-Y gastric bypass with a small hiatal hernia. [facility], Workstation: AD, 09/22/2024 11:33 AM
[2024-09-22] MEDS ORDERED: NITROGLYCERIN SL TABS 0.4 MG TAB SUBLINGUAL PRN (12:41)
[2024-09-22] MEDS ORDERED: PROCHLORPERAZINE 5 MG TAB PO PRN (13:06)
[2024-09-22] MEDS ORDERED: LORazepam 0.5 MG TAB PO PRN (13:06)
[2024-09-22] MEDS ORDERED: LORazepam 1 MG TAB PO PRN ×4 (13:06)
--- NOTE | 2024-09-22 13:09 | P.HPIM ---
History of Present Illness H&P Date: 09/22/24 Patient is a 54-year-old female with past medical history of hypertension, gastric bypass, alcohol abuse, who presented to the ER on 09/22/2024 with chest pain.. Patient was getting ready for work this morning, started feeling unwell, noted chest pain in the middle of the chest radiating to her back, describes as pressure sensation, squeezing sensation. She had been drove to work for 45 m inutes and has not had any pain improvement prompting her to come to the ER for further evaluation. Patient denies any associated shortness of breath, exertional dyspnea or chest pain, fevers, chills, cough, nausea, vomiting, abdominal pain, dysuria, changes in bowel habits, she does get hot flashes as she is going through menopause. Patient quit smoking 30 years ago, around 25-yrog-laly smoking. Patient is a daily beer drinker 4 beers a day, denied history of DTs, alcohol withdrawal symptoms, seizures. On arrival afebrile, heart rate in 70s, blood pressure elevated 148/90, satting well on room air. Lab work revealed WBC count of 3.8, normal hemoglobin and platelet count, D-dimer elevated 1.93, PT, PTT, INR WNL, normal sodium, potassium, bicarb, creatinine, total bilirubin mildly elevated 1.4, AST elevated 111 and ALT 29, troponin negative. CTA chest was done and showed no PE, focal groundglass posterior lateral right midlung opacity that could represent an infectious and inflammatory focus, COPD with mild emphysema. EKG showed normal sinus rhythm, no ST depression elevation, QTc 428. Patient will be admitted as observation for further evaluation of chest pain with cardiology consultation. Pertinent positives and negatives as discussed in HPI, a complete review of systems was performed and all other systems are negative. Patient seen and examined at bedside. Vital signs reviewed General: nontoxic, no distress, appears at stated age Derm: warm, dry Head: atraumatic, normocephalic, symmetric Eyes: EOMI, no lid lag, anicteric sclera, pupils equal round reactive to light ENT: Nose and ears atraumatic, rosacea Neck: No thyromegaly, supple Mouth: no lip lesion, mucus membranes moist Cardiovascular: S1S2 reg, no murmur, no edema Lungs: clear to auscultation bilateral, no rhonchi, no rales, no wheeze, no accessory muscle use Abdominal: soft, nontender to palpation, no guarding, no appreciable organomegaly Ext: no gross muscle atrophy, muscle strength muscle strength 5 out of 5 in all 4 extremities, no contractures Neuro: CN II-XII grossly intact Psych: Alert, oriented, appropriate affect Assessment/Plan: Chest pain - Cardiology consulted, appreciate recommendations -Serial troponins -TTE ordered and pending -Continue telemetry -Start patient on aspirin 81 mg daily, atorvastatin 40 mg nightly -Check metabolic profile with TSH, A1c, lipid profile -Nitroglycerin sublingual 0.4 as needed Hypertension: Continue home lisinopril/hydrochlorothiazide 10/12.5 daily Alcohol use disorder -Counseled on the importance of alcohol cessation -Continue with CIWA with Ativan, daily thiamine 100 mg, folic acid 1 mg, social work consult Hyperbilirubinemia Elevated liver enzymes, likely due to alcohol abuse -Recheck CMP in the morning, check bilirubin fractions -No abdominal pain, abdominal exam negative The patient is admitted with an anticipated less than 2 midnight stay as observation status for evaluation of chest pain. CODE STATUS: DNR/DNI DVT prophylaxis: Lovenox Anticipated discharge date: 09/[address]: Home A total of minutes was spent on the care of this complex patient more than 50% of the time was spent in counseling and care coordination. Past Medical History Past Medical History: Hypertension History of Any Multi-Drug Resistant Organisms: None Reported Past Surgical History: Back Surgery, Cholecystectomy, Hernia Repair, Joint Replacement, Orthopedic Surgery Additional Past Surgical History / Comment(s): Gastric Bypass Past Psychological History: No Psychological Hx Reported Smoking Status: Never smoker Past Alcohol Use History: Daily Past Drug Use History: None Reported Medications and Allergies Home Medications Medication Instructions Recorded Confirmed Type Lisinopril-Hctz 10-12.5 mg 1 tab PO DAILY 09/22/24 09/22/24 History [Zestoretic 10-12.5] Allergies Allergy/AdvReac Type Severity Reaction Status Date / Time codeine Allergy Anaphylaxis Verified 09/22/24 12:37 morphine Allergy Anaphylaxis Verified 09/22/24 12:37 oxycodone [From Percocet] Allergy Anaphylaxis Verified 09/22/24 12:37 Physical Exam Vitals: Vital Signs Temp Pulse Resp BP Pulse Ox 09/22/24 12:26 73 12 130/85 99 09/22/24 11:30 75 18 126/83 96 09/22/24 09:21 97.9 F 74 20 148/89 99 Intake and Output 09/21/24 09/22/24 09/22/24 22:59 06:59 14:59 Other: Weight 90.718 kg Results CBC & Chem 7: 09/22/24 09:42 09/22/24 09:42 Labs: Abnormal Lab Results - Last 24 Hours (Table) 09/22/24 09/22/24 09/22/24 Range/Units 09:42 09:42 09:42 WBC 3.83 L (4.50-10.00) 10*3/uL MCH 32.4 H (27.0-32.0) pg MPV 8.5 L (9.5-12.2) fL Lymphocytes # 0.86 L (0.90-5.00) 10*3/uL D-Dimer 1.93 H (<0.60) mg/L FEU BUN 5 L (7-17) mg/dL Total Bilirubin 1.4 H (0.2-1.3) mg/dL AST 111 H (14-36) U/L ALT 39 H (4-34) U/L
[2024-09-22] MEDS: ACETAMINOPHEN TAB 325 MG TAB PO PRN (16:30)
[2024-09-22] MEDS: ATORVASTATIN 40 MG TAB PO SCH (19:39)
[2024-09-23 02:19] LABS: Triglycerides 49.10 mg/dL (0.00-149.00); VLDL Calculation 9.82 mg/dL (5.00-40.00)
[2024-09-23 02:32] LABS: Cholesterol 239.00 mg/dL (0.00-200.00); HDL Cholesterol 163.00 mg/dL (40.00-60.00); LDL Cholesterol,Calculated 66.2 mg/dL (0.0-131.0)
[2024-09-23 03:15] VITALS: RESP 16
[2024-09-23 07:15] LABS: ALT 34 U/L (4-34); AST 65 U/L (14-36); African American GFR (CKD) >90 (>60 ml/min/1.73 sqM); Albumin 4.0 g/dL (3.5-5.0); Alkaline Phosphatase 85 U/L (38-126); Anion Gap 5 mmol/L; Bilirubin, Delta 0.3 mg/dL (0.0-0.2); Bilirubin,Unconjugated 1.6 mg/dL (0.0-1.1); Blood Urea Nitrogen 11 mg/dL (7-17); Calcium 9.5 mg/dL (8.4-10.2); Carbon Dioxide 27 mmol/L (22-30); Chloride 106 mmol/L (98-107); Glucose 87 mg/dL (74-99); Non-African American GFR(CKD) >90 (>60 ml/min/1.73 sqM); Potassium 4.3 mmol/L (3.5-5.1); Sodium 138 mmol/L (137-145); Total Protein 6.6 g/dL (6.3-8.2)
[2024-09-23] MEDS ORDERED: ENOXAPARIN 40 MG/0.4 ML SYRINGE SQ SCH (09:00)
[2024-09-23] MEDS ORDERED: ASPIRIN 81 MG PO SCH (09:00)
[2024-09-23] MEDS ORDERED: THIAMINE 100 MG TAB PO SCH (09:00)
[2024-09-23] MEDS ORDERED: LISINOPRIL-HCTZ 10-12.5 MG 1 EACH TAB PO SCH (09:00)
[2024-09-23] MEDS ORDERED: FOLIC ACID 1 MG TAB PO SCH (09:00)
--- NOTE | 2024-09-23 09:37 | CA ---
Transthoracic Echo Report Name: Ayaz Pascual Age: 54 Gender: F : 1970 Exam Date: 09/22/2024 13:15 Exam Location: [facility] Ht (in): 67 Wt (lb): 200 Ordering Physician: Arik Hills PAC Attending/Referring Phys: [id number], Jeana Resistance Machine Welder Setter Mo Mccormack RDCS Procedure CPT: Indications: Chest Pain Cardiac Hx: Technical Quality: Fair Contrast 1: Total Dose (mL): 81 Contrast 2: Total Dose (mL): MEASUREMENTS (Male / Female) Normal Values 2D ECHO LV Diastolic Diameter PLAX 4.5 cm 4.2 - 5.9 / 3.9 - 5.3 cm LV Systolic Diameter PLAX 3.6 cm IVS Diastolic Thickness 1.1 cm 0.6 - 1.0 / 0.6 - 0.9 cm LVPW Diastolic Thickness 1.0 cm 0.6 - 1.0 / 0.6 - 0.9 cm LV Relative Wall Thickness 0.5 RV Internal Dim ED PLAX 3.1 cm LVOT Diameter 2.1 cm LA Systolic Diameter LX 3.4 cm 3.0 - 4.0 / 2.7 - 3.8 cm LV Diastolic Volume MOD BP 49.4 cm??? 67 - 155 / 56 - 104 cm??? LV Systolic Volume MOD BP 23.0 cm??? 22 - 58 / 19 - 49 cm??? LV Ejection Fraction MOD BP 53.4 % >= 55 % LV Diastolic Volume MOD 4C 59.5 cm??? LV Systolic Volume MOD 4C 29.7 cm??? LV Ejection Fraction MOD 4C 50.1 % LV Diastolic Length 4C 6.7 cm LV Systolic Length 4C 5.7 cm LV Diastolic Volume MOD 2C 44.6 cm??? LV Systolic Volume MOD 2C 17.5 cm??? LV Ejection Fraction MOD 2C 60.8 % LV Diastolic Length 2C 7.0 cm LV Systolic Length 2C 4.8 cm LA Volume 71.4 cm??? 18 - 58 / 22 - 52 cm??? LA Volume Index 34.0 cm???/m??? 16 - 28 cm???/m??? M-MODE Aortic Root Diameter MM 3.1 cm LA Systolic Diameter MM 3.2 cm LA Ao Ratio MM 1.0 AV Cusp Separation MM 1.6 cm DOPPLER AV Peak Velocity 200.9 cm/s AV Peak Gradient 16.1 mmHg AV Mean Velocity 122.3 cm/s AV Mean Gradient 6.7 mmHg AV Velocity Time Integral 35.6 cm LVOT Peak Velocity 103.0 cm/s LVOT Peak Gradient 4.2 mmHg LVOT Velocity Time Integral 17.1 cm LVOT Stroke Volume 56.6 cm??? LVOT Stroke Volume Index 28.0 ml/m??? AV Area Cont Eq vti 1.6 cm??? AV Area Cont Eq pk 1.7 cm??? MV Peak Velocity 112.6 cm/s MV Peak Gradient 5.1 mmHg MV Mean Velocity 64.7 cm/s MV Mean Gradient 1.9 mmHg MV Velocity Time Integral 24.2 cm MV Area PHT 3.9 cm??? Mitral E Point Velocity 82.9 cm/s Mitral A Point Velocity 126.4 cm/s Mitral E to A Ratio 0.7 MV Deceleration Time 193.7 ms TR Peak Velocity 240.5 cm/s TR Peak Gradient 23.1 mmHg FINDINGS Left Ventricle Left ventricular ejection fraction is estimated at 50-55 %. Normal left ventricular systolic function with no obvious regional wall motion abnormalities. Mildly increased septal wall thickness. Mildly increased posterior wall thickness. Mildly decreased left ventricular ejection fraction. Right Ventricle Normal right ventricular size and function. Right Atrium Normal right atrial size. No right atrial thrombus or mass seen. Left Atrium Moderately increased left atrial volume. No left atrial thrombus or mass present. Mitral Valve No mitral stenosis. Mild mitral regurgitation. Aortic Valve Trileaflet aortic valve. No aortic stenosis. No aortic regurgitation. Tricuspid Valve No tricuspid stenosis. Mild tricuspid regurgitation. Pulmonic Valve Structurally normal pulmonic valve. No pulmonic stenosis. No pulmonic regurgitation. Pericardium Normal pericardium. No pericardial or pleural effusion. Aorta Normal size aortic root and proximal ascending aorta. CONCLUSIONS Normal biventricular systolic function No significant valvular abnormalities noted No pericardial effusion Previewed by: Dr. Festus Solis MD (Electronically Signed) Final Date: 23 September 2024 09:36
[2024-09-23 10:24] VITALS: BP 131/77; PULSE 75; TEMP 98.2
[2024-09-23 10:30] LABS: Triglycerides 35.20 mg/dL (0.00-149.00); VLDL Calculation 7.04 mg/dL (5.00-40.00)
[2024-09-23 10:42] LABS: Cholesterol 235.00 mg/dL (0.00-200.00); HDL Cholesterol 163.00 mg/dL (40.00-60.00); LDL Cholesterol,Calculated 65.0 mg/dL (0.0-131.0)
--- NOTE | 2024-09-23 11:15 | P.CRDCN ---
History of Present Illness History of present illness: HISTORY OF PRESENT ILLNESS: This is a 54-year-old female with a past medical history significant for hypertension. 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 We have been asked to see the patient in consultation for chest pain. Patient examined at the bedside. Patient states yesterday she began to have chest discomfort. She states it was in the middle of her chest and radiated to her back. She states the pain was worse with deep inspiration. She also reports having an episode this morning of mild chest discomfort. She is a non-smoker. She reports a family history of CAD in her brother, sister, aunts, and dad. DIAGNOSTICS: - EKG reveals sinus mechanism with no signs of acute ischemia. - Chest xray negative for acute process. - Laboratory data: Troponin negative x 3 - Current home cardiac medications include lisinoprilhydrochlorothiazide 10- 12.5 mg daily. - Most recent echocardiogram obtained this admission revealed ejection fraction 50 to 55%, mild TR - Cardiac catheterization history: Patient denies REVIEW OF SYSTEMS: At the time of my exam: CONSTITUTIONAL: Denies fever or chills. HEENT: Denies blurred vision, vision changes, or eye pain. Denies hemoptysis CARDIOVASCULAR: Denies chest pain. Denies orthopnea. Denies PND. Denies palpitations RESPIRATORY: Denies shortness of breath. GASTROINTESTINAL: Denies abdominal pain. Denies nausea or vomiting. HEMATOLOGIC: Denies bleeding disorders. GENITOURINARY: Denies any blood in urine. SKIN: Denies pruitis. Denies rash. PHYSICAL EXAM: VITAL SIGNS: Reviewed. GENERAL: Well-developed in no acute distress. HEENT: Head is normocephalic. Pupils are equal, round. Sclerae anicteric. Mucous membranes of the mouth are moist. Neck supple. No JVD or thyromegaly LUNGS: Respirations even and unlabored. Lungs essentially clear to auscultation bilaterally. HEART: Regular rate and rhythm. S1 and S2 heard. ABDOMEN: Soft. Nondistended. Nontender. EXTREMITIES: Normal range of motion. No clubbing or cyanosis. Peripheral pulses intact. No lower extremity edema NEUROLOGIC: Awake and alert. Oriented x 3. ASSESSMENT: Chest pain Hypertension Family history of CAD Obesity: BMI 31.3 PLAN: An acute coronary event has been ruled out 2D echo obtained and reviewed Resume home cardiac medications Patient to undergo stress echocardiogram today Further recommendations pending patient course Nurse practitioner note has been reviewed by physician. Signing provider agrees with the documented findings, assessment, and plan of care documented by EDUCATION TEACHER as a scribe. Past Medical History Past Medical History: Hypertension History of Any Multi-Drug Resistant Organisms: None Reported Past Surgical History: Back Surgery, Cholecystectomy, Hernia Repair, Joint Replacement, Orthopedic Surgery Additional Past Surgical History / Comment(s): Gastric Bypass Past Psychological History: No Psychological Hx Reported Smoking Status: Never smoker Past Alcohol Use History: Daily Past Drug Use History: None Reported Medications and Allergies Home Medications Medication Instructions Recorded Confirmed Type Lisinopril-Hctz 10-12.5 mg 1 tab PO DAILY 09/22/24 09/22/24 History [Zestoretic 10-12.5] Allergies Allergy/AdvReac Type Severity Reaction Status Date / Time codeine Allergy Anaphylaxis Verified 09/22/24 12:37 morphine Allergy Anaphylaxis Verified 09/22/24 12:37 oxycodone [From Percocet] Allergy Anaphylaxis Verified 09/22/24 12:37 Physical Exam Vitals: Vital Signs Temp Pulse Pulse Pulse Resp BP BP 09/23/24 08:13 98.3 F 69 128/70 09/23/24 02:00 98.1 F 75 16 144/80 09/22/24 20:00 98.6 F 89 17 153/87 09/22/24 15:00 97.6 F 88 84 17 138/87 160/85 09/22/24 14:36 76 16 140/89 09/22/24 12:26 73 12 130/85 09/22/24 11:30 75 18 126/83 09/22/24 09:21 97.9 F 74 20 148/89 Pulse Ox 09/23/24 08:13 98 09/23/24 02:00 98 09/22/24 20:00 97 09/22/24 15:00 98 09/22/24 14:36 96 09/22/24 12:26 99 09/22/24 11:30 96 09/22/24 09:21 99 Intake and Output 09/22/24 09/23/24 09/23/24 22:59 06:59 14:59 Intake Total 250 Balance 250 Intake: Oral 250 Other: Voiding Method Toilet # Voids 3 0 Weight 90.718 kg Results 09/22/24 09:42 09/23/24 06:21 Cardiac Enzymes 09/22/24 09/22/24 09/22/24 Range/Units 09:42 09:42 13:02 AST 111 H (14-36) U/L Troponin I <0.012 <0.012 (0.000-0.034) ng/mL 09/22/24 09/23/24 Range/Units 15:32 06:21 AST 65 H (14-36) U/L Troponin I <0.012 (0.000-0.034) ng/mL Coagulation 09/22/24 Range/Units 09:42 PT 10.0 (10.0-12.5) sec APTT 22.5 (22.0-30.0) sec Lipids 09/22/24 Range/Units 13:02 Triglycerides 49.10 (0.00-149.00) mg/dL Cholesterol 239.00 H (0.00-200.00) mg/dL HDL Cholesterol 163.00 H (40.00-60.00) mg/dL Cholesterol/HDL Ratio 1.47 Ratio CBC 09/22/24 Range/Units 09:42 WBC 3.83 L (4.50-10.00) 10*3/uL RBC 4.29 (4.10-5.20) 10*6/uL Hgb 13.9 (12.0-15.0) g/dL Hct 39.3 (37.2-46.3) % Plt Count 208 (140-440) 10*3/uL Comprehensive Metabolic Panel 09/22/24 09/23/24 Range/Units 09:42 06:21 Sodium 138 138 (137-145) mmol/L Potassium 4.0 4.3 (3.5-5.1) mmol/L Chloride 104 106 (98-107) mmol/L Carbon Dioxide 24 27 (22-30) mmol/L BUN 5 L 11 (7-17) mg/dL Creatinine 0.56 0.57 (0.52-1.04) mg/dL Glucose 90 87 (74-99) mg/dL Calcium 9.2 9.5 (8.4-10.2) mg/dL Unconjugated Bilirubin 1.6 H (0.0-1.1) mg/dL AST 111 H 65 H (14-36) U/L ALT 39 H 34 (4-34) U/L Alkaline Phosphatase 92 85 (38-126) U/L Total Protein 6.9 6.6 (6.3-8.2) g/dL Albumin 4.3 4.0 (3.5-5.0) g/dL Current Medications Generic Name Dose Route Start Last Admin Trade Name Freq PRN Reason Stop Dose Admin Acetaminophen 650 mg 09/22/24 13:06 09/22/24 16:30 Acetaminophen Tab 325 Mg Tab PO 650 mg Q6HR PRN Administration Mild Pain or Fever > 100.5 Aspirin 81 mg 09/23/24 09:00 Aspirin 81 Mg PO DAILY REINIER Atorvastatin Calcium 40 mg 09/22/24 21:00 09/22/24 19:39 Atorvastatin 40 Mg Tab PO 40 mg HS REINIER Administration Enoxaparin Sodium 40 mg 09/23/24 09:00 Enoxaparin 40 Mg/0.4 Ml Syringe SQ DAILY REINIER Folic Acid 1 mg 09/23/24 09:00 Folic Acid 1 Mg Tab PO DAILY REINIER Lisinopril/HCTZ 1 each 09/23/24 09:00 Lisinopril-Hctz 10-12.5 Mg 1 Each Tab PO DAILY REINIER Lorazepam 0.5 mg 09/22/24 13:06 Lorazepam 0.5 Mg Tab PO Q4HR PRN Ciwa 4 To 5 Lorazepam 1 mg 09/22/24 13:06 Lorazepam 1 Mg Tab PO Q4HR PRN Ciwa 6 To 7 Lorazepam 2 mg 09/22/24 13:06 Lorazepam 1 Mg Tab PO Q2HR PRN Ciwa 10 or greater Lorazepam 2 mg 09/22/24 13:06 Lorazepam 1 Mg Tab PO Q3HR PRN Ciwa 8 To 9 Lorazepam 1 mg 09/22/24 13:06 Lorazepam 1 Mg Tab PO Q1HR PRN Alcohol Withdrawal Nitroglycerin 0.4 mg 09/22/24 12:41 Nitroglycerin Sl Tabs 0.4 Mg Tab SUBLINGUAL Q10M PRN Chest Pain Prochlorperazine Maleate 5 mg 09/22/24 13:06 Prochlorperazine 5 Mg Tab PO Q8HR PRN Nausea And Vomiting Thiamine HCl 100 mg 09/23/24 09:00 Thiamine 100 Mg Tab PO DAILY REINIER Intake and Output 09/22/24 09/23/24 09/23/24 22:59 06:59 14:59 Intake Total 250 Balance 250 Intake: Oral 250 Other: Voiding Method Toilet # Voids 3 0 Weight 90.718 kg 09/22/24 09:42 09/23/24 06:21
--- NOTE | 2024-09-23 12:29 | CA ---
Exercise Stress Test Report Name: Ayaz Pascual Exam Date: 09/23/2024 11:35 Exam Location: [place] Stress Ht (in): 67 Wt (lb): 200 BSA: 2.02 Ordering Phys: Isis Ham Referring Phys: ISIS HAM,, Technologist: AMY Age: 54 Gender: F : 1970 Procedure CPT: Indications: CP ICD-10 Codes: Patient History: CP, HTN, HIGH CHOL, FAMILY HX. Medications: SEE CHART,,,,, Meds past 24 hrs: Pretest Chest Pain: STRESS TEST Delta Protocol Exercise Duration (min:sec): 05:[address] Depressions (mm): Angina Score: Ortega Score: Resting HR (bpm): 105 Peak HR (bpm): 158 Resting BP (mmHg): 141 / 89 Peak BP (mmHg): 183 / 76 MPHR: 165 Target HR: 140 % MPHR: 96 METS: 7.1 Total Dose: Peak Dose: Atropine: Double Product: 84545 BP Response: Stress Termination: MAX EXERTION/TARGET HR Stress Symptoms: NO SYMPTOMS Stress Summary: ECG ANALYSIS Resting ECG: Stress ECG: CONCLUSIONS Average exercise tolerance Normal electrocardiogram stress test Dr. Festus Solis MD (Electronically Signed) Final Date: 23 September 2024 12:28
--- NOTE | 2024-09-23 13:09 | P.DS ---
Providers Date of admission: 09/22/24 12:13 Attending physician: Johnna Mccarthy MD Consults: 09/22/24 12:50 Consult Physician Urgent Consulting Provider: Festus Solis Consult Reason/Comments: chest pain Do you want consulting provider notified?: Yes Primary care physician: Xu Hunter [facility] Course: Discharge Diagnosis: Atypical chest pain, ACS ruled out Hypertension Alcohol use disorder Hyperbilirubinemia Elevated liver enzymes likely due to alcohol abuse Hospital Course: Patient is a 54-year-old female with past medical history of hypertension, gastric bypass, alcohol abuse, who presented to the ER on 09/22/2024 with chest pain.. Patient was getting ready for work this morning, started feeling unwell, noted chest pain in the middle of the chest radiating to her back, describes as pressure sensation, squeezing sensation. She had been drove to work for 45 minutes and has not had any pain improvement prompting her to come to the ER for further evaluation. Patient denies any associated shortness of breath, exertional dyspnea or chest pain, fevers, chills, cough, nausea, vomiting, abdominal pain, dysuria, changes in bowel habits, she does get hot flashes as she is going through menopause. Patient quit smoking 30 years ago, around 53-[id number]-[id number] smoking. Patient is a daily beer drinker 4 beers a day, denied history of DTs, alcohol withdrawal symptoms, seizures. On arrival afebrile, heart rate in 70s, blood pressure elevated 148/90, satting well on room air. Lab work revealed WBC count of 3.8, normal hemoglobin and platelet count, D-dimer elevated 1.93, PT, PTT, INR WNL, normal sodium, potassium, bicarb, creatinine, total bilirubin mildly elevated 1.4, AST elevated 111 and ALT 29, troponin negative. CTA chest was done and showed no PE, focal groundglass posterior lateral right midlung opacity that could represent an infectious and inflammatory focus, COPD with mild emphysema. EKG showed normal sinus rhythm, no ST depression elevation, QTc 428. Patient will be admitted as observation for further evaluation of chest pain with cardiology consultation. TSH 1.5, A1c 5.0, LDL 65, HDLs 163, cholesterol 235. 7/17: Patient was seen examined at bedside, no acute events overnight, she feels back to normal, ready for discharge.. TTE showed EF of 50 to 55% with mild TR, stress echo was normal, patient was cleared for discharge by cardiology. ASCVD 2.2%, no statins or aspirin prescribed at discharge, patient to follow-up with PCP closely, diet recommendations provided in the AVS. Alcohol abstinence strongly recommended Patient seen and examined at bedside. Vital signs reviewed and stable. General: nontoxic, no distress, appears at stated age Derm: warm, dry Head: atraumatic, normocephalic, symmetric Eyes: EOMI, no lid lag, anicteric sclera, pupils equal round reactive to light ENT: Nose and ears atraumatic, rosacea Neck: No thyromegaly, supple Mouth: no lip lesion, mucus membranes moist Cardiovascular: S1S2 reg, no murmur, no edema Lungs: clear to auscultation bilateral, no rhonchi, no rales, no wheeze, no accessory muscle use Abdominal: soft, nontender to palpation, no guarding, no appreciable organomegaly Ext: no gross muscle atrophy, muscle strength muscle strength 5 out of 5 in all 4 extremities, no contractures Neuro: CN II-XII grossly intact Psych: Alert, oriented, appropriate affect A total of 40 minutes of time were spent preparing this complex discharge summary. Patient was discharged on 09/23/2024. Patient Condition at Discharge: Fair Plan - Discharge Summary Discharge Rx Participant: No New Discharge Prescriptions: New Folic Acid 1 mg PO DAILY #30 tab Nitroglycerin Sl Tabs [Nitrostat] 0.4 mg SUBLINGUAL Q10M PRN #30 tab PRN Reason: Chest Pain Thiamine [Vitamin B-1] 100 mg PO DAILY #30 tab Continue Lisinopril-Hctz 10-12.5 mg [Zestoretic 10-12.5] 1 tab PO DAILY Discharge Medication List Lisinopril-Hctz 10-12.5 mg [Zestoretic 10-12.5] 1 tab PO DAILY 09/22/24 [History] Folic Acid 1 mg PO DAILY #30 tab 09/23/24 [Rx] Nitroglycerin Sl Tabs [Nitrostat] 0.4 mg SUBLINGUAL Q10M PRN #30 tab 09/23/24 [Rx] Thiamine [Vitamin B-1] 100 mg PO DAILY #30 tab 09/23/24 [Rx] Follow up Appointment(s)/Referral(s): Vargas Hunter MD [Primary Care Provider] - 1-2 days Patient Instructions/Handouts: Cholesterol and Your Health (GEN), Hyperlipidemia (DC) Activity/Diet/Wound Care/Special Instructions: Please call follow-up with your primary care physician. Highly recommend alcohol abstinence. There are no indications for you to take aspirin or cholesterol medications at this time, please refer to diet modifications recommendations provided in the after visit summary. ASCVD score 2.2%, risk of cardiovascular event heart attack or stroke in the next 10 years, no statin recommended. Please, call to follow-up with your primary care physician, check blood work regularly Discharge/Stand Alone Forms: Work/Release Restrictions Form Discharge Disposition: HOME SELF-CARE
== END 2024-09-23 13:00 | disposition home or self-care (01) ==
LOC: EC 09:16 → 1SOBS 12:13
PROVIDERS: ADMIT Student in an Organized Health Care Education/Training Program; ATTEND Student in an Organized Health Care Education/Training Program
DX: R07.89 Other chest pain (principal); I10 Essential (primary) hypertension; J43.9 Emphysema, unspecified; F10.10 Alcohol abuse, uncomplicated; E66.9 Obesity, unspecified; Z68.31 Body mass index [BMI] 31.0-31.9, adult; R17 Unspecified jaundice; M54.9 Dorsalgia, unspecified; R79.89 Other specified abnormal findings of blood chemistry; R74.01 Elevation of levels of liver transaminase levels; Z79.899 Other long term (current) drug therapy; Z88.5 Allergy status to narcotic agent; Z66 Do not resuscitate; Z87.891 Personal history of nicotine dependence; Z71.41 Alcohol abuse counseling and surveillance of alcoholic; Z98.84 Bariatric surgery status; Z82.49 Family history of ischemic heart disease and other diseases of the circulatory system; I07.1 Rheumatic tricuspid insufficiency
CPT/HCPCS: 99285; 36415; 93005; 93017; 93306; 85379; 80061 ×2; 80053 ×2; 84443; 82248; 83690; 83735; 84484; 85025; 85610; 85730; 83036; 71046; 71275; G0378 ×2; Q9967